=== PATIENT | male | born 1960 | race African-American/Black ===

== ENCOUNTER 2019-02-28 21:50 | Emergency (ER) | payer SELFPAY ==
[~2019-02-28] VITALS: Ht 185.4 cm; Wt 73.0 kg
[2019-03-01] MEDS ORDERED: FLUORESCEIN SODIUM 1MG/STRIP RIGHTEYE ONE
[2019-03-01] MEDS ORDERED: TETRACAINE 0.5% OPHTH DROPS 4ML RIGHTEYE ONE
[2019-03-01 01:30] VITALS: BP 142/77
== END 2019-03-01 01:31 | disposition home or self-care (01) ==
LOC: ER 21:50
DX: Z01.00 Encounter for examination of eyes and vision without abnormal findings (principal); F12.10 Cannabis abuse, uncomplicated
CPT/HCPCS: 99283